=== PATIENT | female | born 1990 | race Caucasian/White ===

== ENCOUNTER 2017-10-08 12:03 | Emergency (ER) | payer BC, OTHER ==
[~2017-10-08] VITALS: Ht 165.1 cm; Wt 123.8 kg
[~2017-10-08 12:03] MED LIST: AMT50 PO; LEUP3.752 INJ
[2017-10-08 12:15] VITALS: TEMP 37.2; Ht 165.1 cm; Wt 123.8 kg
[2017-10-08] MEDS ORDERED: SODIUM CHLORIDE 0.9% 1000ML 1,000 ML IV STA (12:29)
[2017-10-08] MEDS ORDERED: PROMETHAZINE HCL INJ 25 MG in SODIUM CHLORIDE 0.9% 50ML 50 ML IV STA (12:29)
[2017-10-08] MEDS ORDERED: MoRPHine SULFATE 4 MG/ML 1 ML CARP\\VIAL IV PRN (12:30)
[2017-10-08 12:56] LABS: BASO % 0.2 %; BASO ABS # 0.01 K/uL (0-0.2); COMPLETE YES; EOS % 0.2 %; HEMATOCRIT 41.1 % (37-47); IG% 0.3 %; LYMPH % 14.4 %; LYMPH ABS # 0.95 K/uL (1.2-3.4); MEAN CORPUSCULAR HEMOGLOBIN 30.8 pg (25-34); MEAN CORPUSCULAR HGB CONC 35.8 g/dl (32-36); MEAN PLATELET VOLUME 9.9 fL (7.4-10.4); MONO % 8.2 %; NEUT % 76.7 %; PLATELET COUNT 144 K/uL (130-400); RED BLOOD COUNT 4.78 M/uL (4.2-5.4); WHITE BLOOD COUNT 6.58 K/uL (4.8-10.8)
[2017-10-08 13:01] LABS: ISTAT CREATININE 0.9 mg/dl (0.6-1.3); ISTAT HEMOGLOBIN 14.6 g/dl (12.0-16.0); ISTAT IONIZED CALCIUM 1.18 mmol/l (1.12-1.32)
--- NOTE | 2017-10-08 13:01 | EMERGENCY ROOM VISIT NOTE ---
History Report prepared by Brandyn: Марина Hall Under the Supervision of: Dr. Len Dixon D.O. First contact with patient: 12:19 Chief Complaint: ILLNESS Stated Complaint: HEADACHE X 1/2 DAY, NECK PAIN, DIZZY, THROAT SWOLL History of Present Illness The patient is a 27 year old female who presents to the Emergency Room with complaints of persistent headache starting 1000 yesterday. She describes the pain as a pressure. She has never had this type of headache before. When she stands up, she gets dizzy and her headache intensifies. The dizziness started last night at 1900. She has been getting left sided neck pain with swelling to the left side of her throat. She has pain with swallowing. She vomited at 1000 today. She denies any numbness, weakness, or abdominal pain. She felt warm and checked her temperature which was 99. Her last period was around 2 weeks ago. She denies any chance of . She denies any sick contacts. She denies any medical issues. She does smoke. Source of History: patient Onset: 1000 yesterday Position: head Quality: pressure Timing: other (persistent) Associated Symptoms: + neck pain, No abdominal pain, No weakness, No numbness Note: Pt reports dizziness, throat swelling, pain with swallowing. Review of Systems See HPI for pertinent positives & negatives. A total of 10 systems reviewed and were otherwise negative. Past Medical & Surgical Medical Problems: (1) Head pain cephalgia (2) Headache Surgical Problems: (1) H/O tubal ligation Family History Cancer Diabetes mellitus FH: heart disease Hypertension Social History Smoking Status: Current Every Day Smoker Alcohol Use: none Drug Use: none Marital Status: single Occupation Status: employed Current/Historical Medications Scheduled Meclizine HCl (Meclizine 25), 25 MG PO Q8 Ondasetron Odt (Zofran Odt), 4 MG SL Q6H Allergies Coded Allergies: NO KNOWN DRUG ALLERGIES (Verified Allergy, Unknown, ., 12/25/15) Ondansetron (Unverified Adverse Reaction, Severe, "LOWERED HEART RATE IN THE 30'S" PER PT., 10/08/17) Physical Exam Vital Signs Date Time Temp Pulse Resp B/P (MAP) Pulse Ox O2 Delivery O2 Flow Rate FiO2 10/08/17 15:50 86 16 108/76 98 11/11/17 14:11 76 16 109/67 97 10/08/17 12:15 37.2 87 18 141/91 96 Room Air Physical Exam GENERAL: Patient is awake, alert, somewhat anxious appearing and uncomfortable. EYES: The conjunctivae are clear. The pupils are round and reactive. EARS, NOSE, MOUTH AND THROAT: The nose is without any evidence of any deformity. Mucous membranes are moist tongue is midline NECK: No meningismus appreciated. Tenderness over the left side of the neck as well as the left paravertebral vasculature. RESPIRATORY: Normal respiratory effort is noted there is no evidence of wheezing rhonchi or rales CARDIOVASCULAR: Regular rate and rhythm noted there no murmurs rubs or gallops normal S1 normal S2 GASTROINTESTINAL: The abdomen is soft. Bowel sounds are present in all quadrants. Abdomen is nontender MUSCULOSKELETAL/EXTREMITIES: There is no evidence of gross deformity full range of motion is noted in the hips and shoulders SKIN: There is no obvious evidence of any rash. There are no petechiae, pallor or cyanosis noted. NEUROLOGIC: Patient is awake alert and oriented x3 strength is symmetric patellar reflexes are 2+ bilaterally Medical Decision & Procedures ER Provider Diagnostic Interpretation: X-ray results as stated below per interpretation by me and the radiologist. Radiology results as stated below per my review and radiologist interpretation: CHEST ONE VIEW PORTABLE CLINICAL HISTORY: 27 years-old Female presenting with severe REYNOSO. TECHNIQUE: Portable upright AP view of the chest was obtained. COMPARISON: 11/15/2012. FINDINGS: Cardiomediastinal silhouette normal. Lungs and pleural spaces clear. Osseous structures normal. Upper abdomen normal. IMPRESSION: 1. No acute cardiopulmonary disease. Electronically signed by: Brady Salinas M.D. 10/08/2017 1:07 PM Dictated Date/Time: 10/08/2017 1:06 PM ANGIOGRAPHY HEAD COMBO, NECK ANGIO WITH CONTRAST CLINICAL HISTORY: 27 years-old Female presenting with severe headache started at 10:00 AM yesterday, worst headache of life, recent sore throat with nonproductive cough. TECHNIQUE: Multidetector CT angiography of the head and neck was performed after the administration of intravenous contrast. 3-D volumetric and/or maximum intensity projection (MIP) images were subsequently reconstructed for review. IV contrast: 93 mL of Optiray 320. A dose lowering technique was used consistent with the principles of ALARA (as low as reasonably achievable). Stenosis measurements were based on NASCET-like criteria. COMPARISON: Noncontrast CT head from 12/26/2014. CT DOSE (mGy.cm): The estimated cumulative dose is 1083.77 mGy.cm. 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 Noncontrast CT head: Image quality slightly degraded by motion artifact, which negatively affects diagnostic sensitivity of the exam. Ventricles and sulci normal in size. Brain parenchyma normal with preserved napoles-white matter differentiation. No midline shift or mass effect. No acute major vascular territory infarction or hemorrhage. No extra-axial fluid collection. Paranasal sinuses and mastoid air cells clear. Calvarium intact. CTA head: Anterior circulation demonstrates patent intracranial portions of the internal carotid arteries. Patent anterior and middle cerebral arteries as well as the anterior commuting artery. Posterior circulation demonstrates codominant vertebral arteries. Bilateral posterior inferior cerebellar, anterior inferior cerebellar, superior cerebellar, and posterior cerebral arteries patent. Bilateral posterior communicating arteries patent. No evidence of significant stenosis, occlusion, or aneurysm. CTA neck: Three-vessel aortic arch with patent origins of the branch vessels. Bilateral common carotid arteries patent. Bilateral internal carotid arteries patent. Origins of the bilateral codominant vertebral arteries patent. Vertebral arteries patent along the courses. No significant stenosis, dissection, or occlusion. IMPRESSION: 1. No acute intracranial pathology. 2. No evidence of significant stenosis, occlusion, or aneurysm in the intracranial vasculature. 3. No evidence of stenosis, dissection, or occlusion of the cervical vasculature. Electronically signed by: Brady Salinas M.D. 10/08/2017 1:28 PM Dictated Date/Time: 10/08/2017 1:21 PM Laboratory Results 10/08/17 12:40 Red Blood Count 4.78, Mean Corpuscular Volume 86.0, Mean Corpuscular Hemoglobin 30.8, Mean Corpuscular Hemoglobin Concent 35.8, Mean Platelet Volume 9.9, Neutrophils (%) (Auto) 76.7, Lymphocytes (%) (Auto) 14.4, Monocytes (%) (Auto) 8.2, Eosinophils (%) (Auto) 0.2, Basophils (%) (Auto) 0.2, Neutrophils # (Auto) 5.05, Lymphocytes # (Auto) 0.95, Monocytes # (Auto) 0.54, Eosinophils # (Auto) 0.01, Basophils # (Auto) 0.01 10/08/17 12:40 Test 10/08/17 12:40 10/08/17 12:48 10/08/17 14:25 White Blood Count 6.58 K/uL (4.8-10.8) Red Blood Count 4.78 M/uL (4.2-5.4) Hemoglobin 14.7 g/dL (12.0-16.0) Hematocrit 41.1 % (37-47) Mean Corpuscular Volume 86.0 fL (80-100) Mean Corpuscular Hemoglobin 30.8 pg (25-34) Mean Corpuscular Hemoglobin Concent 35.8 g/dl (32-36) Platelet Count 144 K/uL (130-400) Mean Platelet Volume 9.9 fL (7.4-10.4) Neutrophils (%) (Auto) 76.7 % Lymphocytes (%) (Auto) 14.4 % Monocytes (%) (Auto) 8.2 % Eosinophils (%) (Auto) 0.2 % Basophils (%) (Auto) 0.2 % Neutrophils # (Auto) 5.05 K/uL (1.4-6.5) Lymphocytes # (Auto) 0.95 K/uL (1.2-3.4) Monocytes # (Auto) 0.54 K/uL (0.11-0.59) Eosinophils # (Auto) 0.01 K/uL (0-0.5) Basophils # (Auto) 0.01 K/uL (0-0.2) RDW Standard Deviation 41.6 fL (36.4-46.3) RDW Coefficient of Variation 13.1 % (11.5-14.5) Immature Granulocyte % (Auto) 0.3 % Immature Granulocyte # (Auto) 0.02 K/uL (0.00-0.02) Erythrocyte Sedimentation Rate 21 mm/hr (0-21) Est Creatinine Clear Calc Drug Dose 120.9 ml/min Estimated GFR () 97.7 Estimated GFR (Non- 84.3 BUN/Creatinine Ratio 8.6 (10-20) Calcium Level 8.4 mg/dl (8.5-10.1) Total Bilirubin 0.3 mg/dl (0.2-1) Direct Bilirubin 0.1 mg/dl (0-0.2) Aspartate Amino Transf (AST/SGOT) 13 U/L (15-37) Alanine Aminotransferase (ALT/SGPT) 35 U/L (12-78) Alkaline Phosphatase 63 U/L (45-117) C-Reactive Protein 4.21 mg/dl (0-0.29) Total Protein 7.9 gm/dl (6.4-8.2) Albumin 3.7 gm/dl (3.4-5.0) Lipase 91 U/L (73-393) Human Chorionic Gonadotropin, Qual NEG (NEG) Bedside Hemoglobin 14.6 g/dl (12.0-16.0) Bedside Hematocrit 43 % (37-47) Bedside Sodium 137 mEq/L (135-144) Bedside Potassium 3.6 mEq/L (3.3-5.0) Bedside Chloride 100 mEq/L (101-112) Bedside Total CO2 24 mEq/l (24-31) Anion Gap 18.0 mmol/L (16-25) Bedside Blood Urea Nitrogen 8 mg/dl (7-18) Bedside Creatinine 0.9 mg/dl (0.6-1.3) Bedside Glucose (other) 81 mg/dl (70-99) Bedside Ionized Calcium ([place]) 1.18 mmol/l (1.12-1.32) Urine Color YELLOW Urine Appearance CLEAR (CLEAR) Urine pH 5.5 (4.5-7.5) Urine Specific [place] 1.034 (1.000-1.030) Urine Protein NEG (NEG) Urine Glucose (UA) NEG (NEG) Urine Ketones NEG (NEG) Urine Occult Blood NEG (NEG) Urine Nitrite NEG (NEG) Urine Bilirubin NEG (NEG) Urine Urobilinogen NEG (NEG) Urine Leukocyte Esterase NEG (NEG) Laboratory results per my review. Medications Administered Medications (Trade) Dose Ordered Sig/Miguel Route Start Time Stop Time Status Last Admin Dose Admin Sodium Chloride 1,000 ml @ 999 mls/hr Q1H1M STAT IV 10/08/17 12:29 10/08/17 13:29 DC 10/08/17 13:19 999 MLS/HR Promethazine HCl 25 mg/Sodium Chloride 51 ml @ 204 mls/hr NOW STAT IV 10/08/17 12:29 10/08/17 12:43 DC 10/08/17 13:19 204 MLS/HR Morphine Sulfate (MoRPHine SULFATE INJ) 4 mg Q15M PRN IV 10/08/17 12:30 10/08/17 16:07 DC 10/08/17 13:19 4 MG Ketorolac Tromethamine (Toradol Inj) 30 mg NOW STAT IV 10/08/17 13:54 10/08/17 13:55 DC 10/08/17 14:11 30 MG ED Course 1223: The patient was evaluated in room A12B. A complete history and physical examination were performed. 1229: Promethazine HCl 25 mg/Sodium Chloride 51 ml @ 204 mls/hr IV, NSS 1000 ml @ 999 mls/hr IV. 1230: Morphine Sulfate 4 mg IV. 1353: I reevaluated the patient. She is not feeling much better. 1354: Toradol Inj 30 mg IV. 1517: I reevaluated the patient. She is feeling better. I discussed the results and treatment plan with her. She verbalized agreement of the treatment plan. She was discharged home. Medical Decision Prior records/ancillary studies reviewed. Triage Nursing notes reviewed. The patient's history was concerning for headache. Differential diagnosis: Etiologies such as migraine headache, meningitis, sinusitis, CO exposure, ICH, SAH, infection, tumor, headache, sinus thrombosis, arterial dissection, as well as others were entertained. The patient is a 27-year-old female who presented to the emergency department for an evaluation of headache and vertigo symptoms. The patient did not have any focal neurologic deficits. The patient did not have meningismus or fever but she did complain of some vague neck pain. The patient was treated with IV fluids IV pain medicine and IV antiemetics. On subsequent reevaluation she was feeling much better. I discussed the patient's laboratory and radiographic studies with her. I discussed some of the other workup which could include a lumbar puncture to rule out subarachnoid hemorrhage. She did not wish to have this procedure at this time. I also discussed with her that she may require further neuroimaging such as an MRI. She was encouraged to rest and avoid any strenuous activity. She was also encouraged to continue all medications as prescribed and follow-up with her doctor for further studies. I also encouraged her to return to the emergency department immediately if symptoms change worsen or the need arises. Medication Reconcilliation Current Medication List: was personally reviewed by me Blood Pressure Screening Patient's blood pressure: Normal blood pressure Blood pressure disposition: Did not require urgent referral Impression Primary Impression: Headache Additional Impression: Vertigo Scribe Attestation The scribe's documentation has been prepared under my direction and personally reviewed by me in its entirety. I confirm that the note above accurately reflects all work, treatment, procedures, and medical decision making performed by me. Departure Information Dispostion Home / Self-Care Prescriptions Meclizine HCl (Meclizine 25) 25 Mg Tab 25 MG PO Q8, #25 TAB Prov: Len Dixon, DO 10/08/17 Ondasetron Odt (ZOFRAN ODT) 4 Mg Tab 4 MG SL Q6H for Nausea, #15 TAB Prov: Len Dixon, DO 10/08/17 Referrals No Doctor, Assigned (PCP) Christy Randall M.D. Forms HOME CARE DOCUMENTATION FORM, IMPORTANT VISIT INFORMATION, WORK / SCHOOL INSTRUCTIONS Patient Instructions ED Vertigo Unspecified, Headache Pain, [facility] Additional Instructions Continue all medications as prescribed. Rest and avoid any strenuous activity. Follow-up with your family doctor soon as possible to discuss the possibility of other testing such as an MRI. Return to the emergency department immediately if symptoms change worsen or the need arises. Problem Qualifiers Primary Impression: Headache Headache type: unspecified Headache chronicity pattern: acute headache Intractability: not intractable Qualified Codes: R51 - Headache
--- NOTE | 2017-10-08 13:08 | DIAGNOSTIC IMAGING REPORT ---
CHEST ONE VIEW PORTABLE CLINICAL HISTORY: 27 years-old Female presenting with severe REYNOSO. TECHNIQUE: Portable upright AP view of the chest was obtained. COMPARISON: 11/15/2012. FINDINGS: Cardiomediastinal silhouette normal. Lungs and pleural spaces clear. Osseous structures normal. Upper abdomen normal. IMPRESSION: 1. No acute cardiopulmonary disease. Electronically signed by: Brady Salinas M.D. 10/08/2017 1:07 PM Dictated Date/Time: 10/08/2017 1:06 PM
[2017-10-08 13:11] LABS: PREG INTERNAL NEGATIVE QC NEG CLEAR BACKGROUND; PREG INTERNAL POSITIVE QC POS CONTROL LINE
[2017-10-08 13:14] LABS: BUN/CREATININE RATIO 8.6 (10-20); CALCIUM 8.4 mg/dl (8.5-10.1); CREATININE 0.94 mg/dl (0.60-1.20); POTASSIUM 3.6 mmol/L (3.5-5.1)
[2017-10-08 13:16] LABS: C-REACTIVE PROTEIN 4.21 mg/dl (0-0.29)
[2017-10-08] MEDS ORDERED: OPTIRAY 320 IV PRN (13:30)
--- NOTE | 2017-10-08 13:30 | DIAGNOSTIC IMAGING REPORT ---
ANGIOGRAPHY HEAD COMBO, NECK ANGIO WITH CONTRAST CLINICAL HISTORY: 27 years-old Female presenting with severe headache started at 10:00 AM yesterday, worst headache of life, recent sore throat with nonproductive cough. TECHNIQUE: Multidetector CT angiography of the head and neck was performed after the administration of intravenous contrast. 3-D volumetric and/or maximum intensity projection (MIP) images were subsequently reconstructed for review. IV contrast: 93 mL of Optiray 320. A dose lowering technique was used consistent with the principles of ALARA (as low as reasonably achievable). Stenosis measurements were based on NASCET-like criteria. COMPARISON: Noncontrast CT head from 12/26/2014. CT DOSE (mGy.cm): The estimated cumulative dose is 1083.77 mGy.cm. 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 Noncontrast CT head: Image quality slightly degraded by motion artifact, which negatively affects diagnostic sensitivity of the exam. Ventricles and sulci normal in size. Brain parenchyma normal with preserved napoles-white matter differentiation. No midline shift or mass effect. No acute major vascular territory infarction or hemorrhage. No extra-axial fluid collection. Paranasal sinuses and mastoid air cells clear. Calvarium intact. CTA head: Anterior circulation demonstrates patent intracranial portions of the internal carotid arteries. Patent anterior and middle cerebral arteries as well as the anterior commuting artery. Posterior circulation demonstrates codominant vertebral arteries. Bilateral posterior inferior cerebellar, anterior inferior cerebellar, superior cerebellar, and posterior cerebral arteries patent. Bilateral posterior communicating arteries patent. No evidence of significant stenosis, occlusion, or aneurysm. CTA neck: Three-vessel aortic arch with patent origins of the branch vessels. Bilateral common carotid arteries patent. Bilateral internal carotid arteries patent. Origins of the bilateral codominant vertebral arteries patent. Vertebral arteries patent along the courses. No significant stenosis, dissection, or occlusion. IMPRESSION: 1. No acute intracranial pathology. 2. No evidence of significant stenosis, occlusion, or aneurysm in the intracranial vasculature. 3. No evidence of stenosis, dissection, or occlusion of the cervical vasculature. Electronically signed by: Brady Salinas M.D. 10/08/2017 1:28 PM Dictated Date/Time: 10/08/2017 1:21 PM
[2017-10-08] MEDS ORDERED: KETOROLAC TROMETHAMINE 30 MG/ML VIAL IV STA (13:54)
[2017-10-08 14:58] LABS: URINE APPEARANCE CLEAR (CLEAR); URINE BILIRUBIN NEG (NEG); URINE COLOR YELLOW; URINE NITRITE NEG (NEG); URINE PH 5.5 (4.5-7.5); URINE SPECIFIC GRAVITY 1.034 (1.000-1.030); UROBILINOGEN NEG (NEG)
[2017-10-08 15:02] LABS: MANUAL MICROSCOPIC REQUIRED? NO; REVIEW REQ? NO
[2017-10-08] MEDS ORDERED: ONDA4TAB10 SL (15:24)
[2017-10-08] MEDS ORDERED: MECL-91 PO (15:24)
[2017-10-08 15:50] VITALS: BP 108/76; PULSE 86; O2SAT 98
== END 2017-10-08 15:52 | disposition home or self-care (01) ==
LOC: C.EDB 12:05 → C.EDA 15:52
DX: R51 Headache (principal); R42 Dizziness and giddiness; F17.200 Nicotine dependence, unspecified, uncomplicated; Z83.3 Family history of diabetes mellitus; Z82.49 Family history of ischemic heart disease and other diseases of the circulatory system